=== PATIENT | male | born 1955 | race Caucasian/White ===

== ENCOUNTER 2017-06-13 11:28 | Emergency (ER) | payer BC ==
[2017-06-13 11:53] VITALS: BP 169/98
--- NOTE | 2017-06-13 12:46 | EDM.PDOC ---
ED HPI GENERAL MEDICAL PROBLEM - General Chief Complaint: Abdominal Pain Stated Complaint: R SIDE ABDOMINAL PAIN Time Seen by Provider: 06/13/17 11:49 Source of Information: Reports: Patient History Limitations: Reports: No Limitations - History of Present Illness INITIAL COMMENTS - FREE TEXT/NARRATIVE: 62 y/o M with R upper abdominal pain. Has been occurring off and on daily for the past week. States the pain is mild - more of a discomfort that actual pain. Waxes and wanes. No clear provoking or relieving factors. Pain is absent now. No vomiting or nausea. No diarrhea. No hematuria/dysuria or other urinary problem. no cough/CP/SOB. Denies fever or recent illness. No injury to the area. No recent heavy lifting. No similar symptoms previously. Tried to have it evaluated by clinic PCP and by walk-in clinic but sent here for evaluation. Also mentions that his BP has been running higher than usual - 150-160's systolic. He is on lisinopril 5 mg daily. Compliant with meds. Treatments EVALUATOR TRANSFER STUDENTS: Reports: Other (see below) Other Treatments EVALUATOR TRANSFER STUDENTS: tylenol Right Abdomen Pain Score (Numeric/FACES): 4 - Related Data Allergies Allergy/AdvReac Type Severity Reaction Status Date / Time No Known Allergies Allergy Verified 05/24/16 17:10 Home Meds: Home Meds Lisinopril 10 mg PO DAILY #30 tablet 06/13/17 [Rx] Past Medical History Cardiovascular History: Reports: High Cholesterol, Hypertension Musculoskeletal History: Reports: Arthritis, RA, Other (See Below) Other Musculoskeletal History: left elbow adhesions removed - Infectious Disease History Infectious Disease History: Reports: Shingles - Past Surgical History HEENT Surgical History: Reports: Naso-Sinus Surgery Social & Family History - Family History Family Medical History: Noncontributory - Tobacco Use Smoking Status *Q: Former Smoker Used Tobacco, but Quit: Yes Month/Year Tobacco Last Used: 34 yrs Second Hand Smoke Exposure: No - Caffeine Use Caffeine Use: Reports: Coffee, Tea - Recreational Drug Use Recreational Drug Use: No - Living Situation & Occupation Living situation: Reports: with Significant Other Occupation: Employed ED ROS GENERAL - Review of Systems Review Of Systems: See Below Constitutional: Denies: Fever HEENT: Reports: No Symptoms Respiratory: Denies: Shortness of Breath, Cough Cardiovascular: Denies: Chest Pain Endocrine: Reports: No Symptoms GI/Abdominal: Reports: Abdominal Pain. Denies: Diarrhea : Denies: Dysuria, Flank Pain, Hematuria Musculoskeletal: Reports: No Symptoms Skin: Reports: No Symptoms Neurological: Reports: No Symptoms ED EXAM, GI/ABD - Physical Exam Exam: See Below Exam Limited By: No Limitations General Appearance: Alert, WD/WN, No Apparent Distress Eyes: Bilateral: Normal Appearance Ears: Normal External Exam Nose: Normal Inspection Throat/Mouth: Normal Inspection, Normal Voice, No Airway Compromise Head: Atraumatic, Normocephalic Neck: Normal Inspection, Supple Respiratory/Chest: No Respiratory Distress, Lungs Clear, Normal Breath Sounds Cardiovascular: Normal Peripheral Pulses, Regular Rate, Rhythm, No Edema, No Murmur GI/Abdominal Exam: Soft, Non-Tender, No Distention Back Exam: Normal Inspection. No: CVA Tenderness (L), CVA Tenderness (R) Extremities: Normal Inspection Neurological: Alert, Oriented, Normal Cognition, No Motor/Sensory Deficits Psychiatric: Normal Affect, Normal Mood Skin Exam: Warm, Dry, Intact, Normal Color Course - Vital Signs Last Recorded V/S: Last Vital Signs Temp 36.3 C 06/13/17 11:49 Pulse 87 06/13/17 11:49 Resp 20 06/13/17 11:49 BP 169/98 H 06/13/17 11:49 Pulse Ox 96 06/13/17 11:49 - Orders/Labs/Meds Orders: Active Orders 24 hr Category Date Time Status Abdomen Ltd [US] Stat Exams 06/13/17 12:11 Taken Labs: Laboratory Tests 06/13/17 06/13/17 Range/Units 12:20 12:20 WBC 5.51 (4.23-9.07) K/mm3 RBC 5.09 (4.63-6.08) M/mm3 Hgb 16.4 (13.7-17.5) gm/L Hct 48.3 (40.1-51.0) % MCV 94.9 H (79.0-92.2) fl MCH 32.2 (25.7-32.2) pg MCHC 34.0 (32.2-35.5) g/dl RDW Std Deviation 44.2 H (35.1-43.9) fL Plt Count 186 (163-337) K/mm3 MPV 10.5 (9.4-12.3) fl Neut % (Auto) 63.6 (34.0-67.9) % Lymph % (Auto) 19.4 L (21.8-53.1) % Jefferson % (Auto) 15.2 H (5.3-12.2) % Eos % (Auto) 0.9 (0.8-7.0) Baso % (Auto) 0.7 (0.1-1.2) % Neut # (Auto) 3.50 (1.78-5.38) K/mm3 Lymph # (Auto) 1.07 L (1.32-3.57) K/mm3 Jefferson # (Auto) 0.84 H (0.30-0.82) K/mm3 Eos # (Auto) 0.05 (0.04-0.54) K/mm3 Baso # (Auto) 0.04 (0.01-0.08) K/mm3 Manual Slide Review Normal smear Sodium 138 (136-145) mEq/L Potassium 3.6 (3.5-5.1) mEq/L Chloride 103 (98-107) mEq/L Carbon Dioxide 24 (21-32) mEq/L Anion Gap 14.6 (5-15) BUN 13 (7-18) mg/dL Creatinine 0.8 (0.7-1.3) mg/dL Est Cr Clr Drug Dosing 96.32 mL/min Estimated GFR (MDRD) > 60 (>60) mL/min BUN/Creatinine Ratio 16.3 (14-18) Glucose 93 (80-115) mg/dL Calcium 9.4 (8.5-10.1) mg/dL Total Bilirubin 0.6 (0.2-1.0) mg/dL AST 43 H (15-37) U/L ALT 86 H (16-63) U/L Alkaline Phosphatase 24 L (46-116) U/L Total Protein 7.5 (6.4-8.2) g/dl Albumin 4.4 (3.4-5.0) g/dl Globulin 3.1 gm/dL Albumin/Globulin Ratio 1.4 (1-2) Lipase 279 (73-393) U/L - Re-Assessments/Exams Free Text/Narrative Re-Assessment/Exam: 06/13/17 12:45 Advised patient to increase lisinopril to 10mg daily. Meanwhile, will eval RUQ pain with labs and u/s. 06/13/17 14:08 Labs normal. U/S shows cholelithiasis, no evidence of cholecystitis. No abd pain at this time. Counselled pt. re: diet, need for f/u, and return precautions. Departure - Departure Time of Disposition: 14:09 Disposition: Home, Self-Care 01 Clinical Impression: Cholelithiasis Qualifiers: Cholelithiasis location: gallbladder Cholecystitis presence: without cholecystitis Biliary obstruction: without biliary obstruction Qualified Code(s) : K80.20 - Calculus of gallbladder without cholecystitis without obstruction - Discharge Information Prescriptions: Lisinopril 10 mg PO DAILY #30 tablet Instructions: Cholelithiasis, [id number] Referrals: Coleman Cuellar MD [Primary Care Provider] - Forms: ED Department Discharge Additional Instructions: 1. Increase lisinopril from 5mg to 10 mg daily. 2. Your blood work was normal. Ultrasound showed gallstones, which may be what is causing your abdominal discomfort. If episodes of pain continue, follow up with the general surgeon of your choice. Call [phone] if you'd like to schedule with a surgeon here. 3. Avoiding fatty foods may help you aviod painful episodes 4. Return to the ED if you have worsening abdominal pain, vomiting, fever, or any other concerning symptoms. - My Orders Last 24 Hours: My Active Orders 06/13/17 12:11 [employer] [[place]] Stat - Assessment/Plan Last 24 Hours: My Active Orders 06/13/17 12:11 [employer] [[place]] Stat
--- NOTE | 2017-06-14 16:52 | US ---
Limited abdominal ultrasound: Multiple real-time images of the upper right abdomen were obtained. Comparison: No prior abdominal imaging. Technologist's note: Suboptimal images due to bowel gas and dense liver Liver is echogenic compatible with fatty infiltration. Multiple gallstones are seen. No gallbladder wall thickening or biliary duct dilatation is seen. Right kidney shows no hydronephrosis or mass. Right kidney has a length of 13.5 cm. Pancreas is poorly seen. Inferior vena cava is patent. Portal vein shows normal hepatopedal flow. Impression: 1. Cholelithiasis without gallbladder wall thickening or biliary duct dilatation. 2. Fatty infiltration within the liver. Diagnostic code #3 Agree with preliminary report issued by [employer] ([facility] preliminary report dictated on 06/13/17, 3:04 PM Central Time)
== END 2017-06-13 14:30 | disposition home or self-care (01) ==
LOC: JD.ED 11:28
DX: K80.20 Calculus of gallbladder without cholecystitis without obstruction (principal); E78.00 Pure hypercholesterolemia, unspecified; I10 Essential (primary) hypertension; M19.90 Unspecified osteoarthritis, unspecified site; Z79.899 Other long term (current) drug therapy; Z87.891 Personal history of nicotine dependence
CPT/HCPCS: 36415; 76705; 76705-26; 80053; 83690; 85025; 99283; 99284-25

== ENCOUNTER → 2017-07-15 | Day surgery (SDC) | payer BC ==
[~2017-07-15] MED LIST: Acetaminophen/Codeine 300-30 MG Tab PO PRN; Bupivacaine 0.25%/EPINEPHrine 1:200,000 30 ML SDV ONE; HYDROmorphone 0.5 MG/0.5 ML Syringe ONE; Ketorolac 30 MG/ML SDV IVPUSH PRN; Labetalol 100 MG/20 ML MDV ONE; Lactated Ringers 1,000 ML IV SCH; Lactated Ringers 1,000 ML ONE; Lidocaine 1% 4 ML ONE; Lidocaine 1% with EPINEPHrine 1:100,000 20 ML MDV ONE; Lidocaine 1%/Sod Bicarbonate in NS 8.4% 1 ML Syringe IDERM PRN; Midazolam 1 MG/ML 2 ML SDV ONE; Ondansetron 4 MG/2 ML SDV ONE; Propofol 200 MG/20 ML SDV ONE; Rocuronium 50 MG/5 ML Vial ONE; Sodium Chloride 0.9% 10 ML Syringe FLUSH PRN; ceFAZolin 1 GM Vial ONE; ePHEDrine 50 MG/ML SDV ONE; fentaNYL 100 MCG/2 ML SDV IVPUSH PRN; fentaNYL 250 MCG/5 ML SDV ONE
--- NOTE | 2017-07-15 07:41 | PCM.PREANE ---
Preanesthetic Assessment - Anesthesia/Transfusion/Family Hx Anesthesia History: Prior Anesthesia Without Reaction Family History of Anesthesia Reaction: No Transfusion History: No Prior Transfusion(s) - Review of Systems General: No Symptoms Pulmonary: No Symptoms Cardiovascular: No Symptoms Gastrointestinal: Abdominal Pain Neurological: No Symptoms Other: Reports: None - Physical Assessment NPO Status Date: 07/14/17 NPO Status Time: 00:00 Pulse: 96 O2 Sat by Pulse Oximetry: 94 Respiratory Rate: 18 Blood Pressure: 144/98 Temperature: 36.4 C Height: 1.78 m Weight: 99.065 kg ASA Class: 2 Mental Status: Alert & Oriented x3 Dentition: Reports: Dentures (upper), Missing Tooth/Teeth, Caries Thyro-Mental Finger Breadths: 2 Mouth Opening Finger Breadths: 3 ROM/Head Extension: Full Lungs: Clear to Auscultation, Normal Respiratory Effort Cardiovascular: Regular Rate, Regular Rhythm, No Murmurs - Lab Values: on chart - Imaging/EKG Impressions: EKG SR borderline prolong QT - Allergies Allergies/Adverse Reactions: Allergies Allergy/AdvReac Type Severity Reaction Status Date / Time No Known Allergies Allergy Verified 07/14/17 14:54 - Blood Blood Available: No Product(s) Available: None - Anesthesia Plan Pre-Op Medication Ordered: None - Acknowledgements Anesthesia Type Planned: General Anesthesia Pt an Appropriate Candidate for the Planned Anesthesia: Yes Alternatives and Risks of Anesthesia Discussed w Pt/Guardian: Yes Pt/Guardian Understands and Agrees with Anesthesia Plan: Yes PreAnesthesia Questionnaire HEENT History: Reports: Impaired Vision, Other (See Below) Other HEENT History: bacterial conjunctivits, wears glasses, has upper denture Cardiovascular History: Reports: High Cholesterol, Hypertension Respiratory History: Reports: None Gastrointestinal History: Reports: Other (See Below) Other Gastrointestinal History: RUQ pain Genitourinary History: Reports: None SAFETY TEACHER History: Reports: None Musculoskeletal History: Reports: Arthritis, RA, Other (See Below) Other Musculoskeletal History: left elbow adhesions removed Neurological History: Reports: None Psychiatric History: Reports: None Endocrine/Metabolic History: Reports: None Hematologic History: Reports: Bleeding Disorder Immunologic History: Reports: None Oncologic (Cancer) History: Reports: None Dermatologic History: Reports: Other (See Below) Other Dermatologic History: herpes zoster - Infectious Disease History Infectious Disease History: Reports: Shingles - Past Surgical History Head Surgeries/Procedures: Reports: None HEENT Surgical History: Reports: Naso-Sinus Surgery Cardiovascular Surgical History: Reports: None Respiratory Surgical History: Reports: None GI Surgical History: Reports: Colonoscopy Female Surgical History: Reports: None Male Surgical History: Reports: None Neurological Surgical History: Reports: None Oncologic Surgical History: Reports: None - SUBSTANCE USE Smoking Status *Q: Former Smoker Tobacco Use Within Last Twelve Months: No Second Hand Smoke Exposure: No Days Per Week of Alcohol Use: 7 Number of Drinks Per Day: 4 Total Drinks Per Week: 28 Recreational Drug Use History: No - HOME MEDS Home Medications: Home Meds Calcium Citrate [Calcitrate (190 MG Calcium)] 950 mg PO DAILY 07/14/17 [History] Cholecalciferol (Vitamin D3) [Vitamin D3] 1,000 unit PO DAILY 07/14/17 [History] Diclofenac Sodium [Voltaren] 1 dose TOP ASDIRECTED PRN 07/14/17 [History] Fenofibrate Nanocrystallized [Fenofibrate] 48 mg PO DAILY 07/14/17 [History] Fluticasone Propionate [Flonase] 1 spray NASBOTH DAILY 07/14/17 [History] Hydroxychloroquine Sulfate [Plaquenil] 200 mg PO BID 07/14/17 [History] Lisinopril 5 mg PO DAILY 07/14/17 [History] Methotrexate Sodium [Methotrexate] 8 tab PO MO 07/14/17 [History] Multivitamin [Poly-Vitamin] 1 tab PO DAILY 07/14/17 [History] Sildenafil [Viagra] 50 mg PO ASDIRECTED PRN 07/14/17 [History] Simvastatin 40 mg PO DAILY 07/14/17 [History] Tofacitinib Citrate [Xeljanz] 5 mg PO DAILY 07/14/17 [History] Vitamin B Complex 1 tab PO DAILY 07/14/17 [History] predniSONE [Prednisone] 10 mg PO SUWEFR 07/14/17 [History] - CURRENT (IN HOUSE) MEDS Current Meds: Current Medications Lactated Ringer's (Ringers, Lactated) 1,000 mls @ 125 mls/hr IV ASDIRECTED SABA Stop: 07/15/17 23:00 Lidocaine/Sodium Bicarbonate (Buffered Lidocaine 1% In Ns 8.4%) 0.25 ml IDERM ONETIME PRN PRN Reason: Prior to IV Start Stop: 07/15/17 18:00 Sodium Chloride (Saline Flush) 10 ml FLUSH ASDIRECTED PRN PRN Reason: Keep Vein Open Stop: 07/15/17 18:00 Discontinued Medications Bupivacaine HCl/Epinephrine Bitart (Marcaine 0.25%/Epinephrine 1:200,000) Confirm Administered Dose 30 ml .ROUTE .STK-MED ONE Stop: 07/15/17 07:21 Cefazolin Sodium (Ancef) Confirm Administered Dose 2 gm .ROUTE .STK-MED ONE Stop: 07/15/17 07:25 Fentanyl (Sublimaze) Confirm Administered Dose 250 mcg .ROUTE .STK-MED ONE Stop: 07/15/17 07:25 Lidocaine HCl (Xylocaine-Mpf 1%) Confirm Administered Dose 4 mls @ as directed .ROUTE .STK-MED ONE Stop: 07/15/17 07:25 Lidocaine/Epinephrine (Xylocaine 1% With Epinephrine 1:100,000) Confirm Administered Dose 20 ml .ROUTE .STK-MED ONE Stop: 07/15/17 07:21 Midazolam HCl (Versed 1 Mg/Ml) Confirm Administered Dose 2 mg .ROUTE .STK-MED ONE Stop: 07/15/17 07:25 Ondansetron HCl (Zofran) Confirm Administered Dose 4 mg .ROUTE .STK-MED ONE Stop: 07/15/17 07:24 Propofol (Diprivan 20 Ml) Confirm Administered Dose 200 mg .ROUTE .STK-MED ONE Stop: 07/15/17 07:24 Rocuronium Valier (Zemuron) Confirm Administered Dose 50 mg .ROUTE .STK-MED ONE Stop: 07/15/17 07:24
--- NOTE | 2017-07-15 09:09 | PCM.OPNOTE ---
- General Post-Op/Procedure Note Date of Surgery/Procedure: 07/15/17 Operative Procedure(s): Laparoscopic cholecystectomy Findings: Adhesions between the small bowel of the right lower quadrant. The gallbladder had chronic inflammation and green pigmented stones. Pre Op Diagnosis: Chronic cholecystitis associated with biliary colic and cholelithiasis Post-Op Diagnosis: Same Anesthesia Technique: General ET Tube, Local Primary Surgeon: Andres Johnson Pathology: Gallbladder with contents EBL in mLs: 3 Complications: None Condition: Good Free Text/Narrative:: After adequate general endotracheal tube anesthesia was obtained the patient's abdomen was prepped and draped in the usual fashion for a laparoscopic cholecystectomy. After local analgesia was given a supraumbilical incision was made with 15 blade down to the midline which was opened with a 15 blade. A 12 mm camera port was inserted through this site. CO2 pneumoperitoneum was obtained. 3 -- 5 mm working ports were placed along the right costal margin. Exploration revealed the findings above. I grasped the dome of the gallbladder and retracted it and the liver in a cephalad direction. I then grasped Luo' s pouch then dissected the pericholecystic fat away from the cystic duct and cystic artery which were identified clipped in continuity and divided with scissors. I then took the gallbladder down in a retrograde fashion with the hook cautery and removed it through the umbilicus in a specimen bag. There was some spillage of bile from the gallbladder and I irrigated out the gallbladder bed with 500 mL of saline. There was no bile duct injury or obvious bowel injury. I decannulated the abdominal wall under direct vision with no bleeding from the port sites seen. CO2 pneumoperitoneum was released. I closed the umbilical site with one [id number] 0 Vicryl. The subcutaneous tissues and skin were closed with Vicryl as well. Steri-Strips and gauze were used for the dressing. [employer] Attorney photographs were taken for the patient and for the medical record.
--- NOTE | 2017-07-15 09:20 | PCM.POSTAN ---
POST ANESTHESIA ASSESSMENT - MENTAL STATUS Mental Status: Alert, Oriented - VITAL SIGNS Pulse Rate: 87 SaO2: 93 Resp Rate: 11 Blood Pressure: 147/85 Temperature: 36.1 C - RESPIRATORY Respiratory Status: Respiratory Rate WNL, Airway Patent, O2 Saturation Stable, Supplemental Oxygen - CARDIOVASCULAR CV Status: Pulse Rate WNL, Blood Pressure Stable - GASTROINTESTINAL GI Status: No Symptoms - PAIN Pain Score: 0 - POST OP HYDRATION Hydration Status: Adequate & Stable - OBSERVATIONS Free Text/Narrative:: no anesthesia complications noted
[2017-07-15 11:47] VITALS: BP 138/90
== END | disposition home or self-care (01) ==
LOC: JD.SDS 06:49
PROVIDERS: ATTEND Surgery
DX: K80.10 Calculus of gallbladder with chronic cholecystitis without obstruction (principal); I10 Essential (primary) hypertension; Z79.899 Other long term (current) drug therapy; F17.200 Nicotine dependence, unspecified, uncomplicated
CPT/HCPCS: 47562; A9270; J0690; J1170; J1885; J2250; J2405; J3010; J7120; J2704

== ENCOUNTER 2023-12-14 08:01 | Day surgery (SDC) | payer MEDICARE ==
[~2023-12-14 08:01] MED LIST changes: -Acetaminophen/Codeine 300-30 MG Tab PO PRN; -Bupivacaine 0.25%/EPINEPHrine 1:200,000 30 ML SDV ONE; -HYDROmorphone 0.5 MG/0.5 ML Syringe ONE; -Ketorolac 30 MG/ML SDV IVPUSH PRN; -Labetalol 100 MG/20 ML MDV ONE; -Lactated Ringers 1,000 ML IV SCH; -Lactated Ringers 1,000 ML ONE; -Lidocaine 1% 4 ML ONE; -Lidocaine 1% with EPINEPHrine 1:100,000 20 ML MDV ONE; -Lidocaine 1%/Sod Bicarbonate in NS 8.4% 1 ML Syringe IDERM PRN; -Midazolam 1 MG/ML 2 ML SDV ONE; -Ondansetron 4 MG/2 ML SDV ONE; -Propofol 200 MG/20 ML SDV ONE; -Rocuronium 50 MG/5 ML Vial ONE; +Sodium Chloride 0.9% 10 ML Syringe FLUSH SCH; -ceFAZolin 1 GM Vial ONE; -ePHEDrine 50 MG/ML SDV ONE; -fentaNYL 100 MCG/2 ML SDV IVPUSH PRN; -fentaNYL 250 MCG/5 ML SDV ONE
[2023-12-14] MEDS ORDERED: Lactated Ringers 1,000 ML ONE (08:13)
[2023-12-14] MEDS ORDERED: ceFAZolin 2 GM Vial ONE ×2 (08:13→08:14)
[2023-12-14] MEDS ORDERED: Midazolam 1 MG/ML 2 ML SDV ONE (08:14)
[2023-12-14] MEDS ORDERED: Propofol 200 MG/20 ML SDV ONE ×5 (08:14→09:59)
[2023-12-14] MEDS: Lactated Ringers 1,000 ML IV SCH (08:30)
[2023-12-14] MEDS: Hydrocortisone Sodium Succinate 100 MG/2 ML SDV IVPUSH ONE (08:49)
[2023-12-14] MEDS ORDERED: Ondansetron 4 MG/2 ML SDV ONE (09:15)
[2023-12-14] MEDS ORDERED: Ketorolac 30 MG/ML SDV ONE (09:15)
[2023-12-14] MEDS ORDERED: HYDROmorphone 0.5 MG/0.5 ML Syringe IVPUSH PRN (09:25)
[2023-12-14] MEDS ORDERED: fentaNYL 100 MCG/2 ML SDV IVPUSH PRN (09:25)
[2023-12-14] MEDS ORDERED: Ondansetron 4 MG/2 ML SDV IVPUSH PRN (09:25)
[2023-12-14] MEDS: Vancomycin 1 GM SDV ONE (10:13)
[2023-12-14] MEDS: Tranexamic Acid 1,000 MG/10 ML Vial ONE (10:13)
[2023-12-14] MEDS: Morphine 8 MG, EPINEPHrine 0.3 MG, Cefuroxime 750 MG, Ketorolac 30 MG, Sodium Chloride ... PRN (10:13)
[2023-12-14] MEDS: traMADol 50 MG Tab PO PRN (12:58)
== END 2023-12-14 15:35 | disposition home or self-care (01) ==
LOC: JD.SDS 08:01
PROVIDERS: ATTEND Orthopaedic Surgery
DX: M16.12 Unilateral primary osteoarthritis, left hip (principal); I10 Essential (primary) hypertension; J44.9 Chronic obstructive pulmonary disease, unspecified; E78.00 Pure hypercholesterolemia, unspecified; M06.9 Rheumatoid arthritis, unspecified; Z87.891 Personal history of nicotine dependence; Z79.899 Other long term (current) drug therapy
CPT/HCPCS: 0055T; 27130; 36415; 73501; 86850; 86900; 86901; 97110; 97161; A9270; C1713; C1776; J0171; J0690; J0697; J1720; J1885; J2250; J2270; J2405; J2704; J3370; J7120; 01214; J3490

== ENCOUNTER 2024-06-16 08:55 | Day surgery (SDC) | payer MEDICARE ==
[2024-06-16] MEDS: Cefuroxime 10 MG/ML SYRINGE EYELF SCH (08:27)
[2024-06-16] MEDS: Brimonidine 0.2% Ophth Soln 5 ML Bottle EYELF SCH (08:27)
[2024-06-16] MEDS: Phenylephrine 2.5% Ophth Soln 2 ML Bot EYELF SCH (08:27)
[2024-06-16] MEDS: Lidocaine 1% PF 2 ML SDV INJECT SCH (08:27)
[2024-06-16] MEDS: Tetracaine HCl/PF 0.5% 4 ML Bottle EYEBOTH SCH (08:27)
[2024-06-16] MEDS: Polymyxin B/Trimethoprim 10 ML Bottle EYELF SCH (08:28)
[2024-06-16] MEDS: Pilocarpine 4% Ophth Soln 15 ML Bot EYELF SCH (08:28)
[2024-06-16] MEDS: Tropicamide 1% Ophth Soln 3 ML Bottle EYELF SCH (09:34)
== END 2024-06-16 11:22 | disposition home or self-care (01) ==
LOC: JD.SDS 08:55
PROVIDERS: ATTEND Ophthalmology
DX: H25.813 Combined forms of age-related cataract, bilateral (principal); H40.013 Open angle with borderline findings, low risk, bilateral; H16.103 Unspecified superficial keratitis, bilateral; H16.223 Keratoconjunctivitis sicca, not specified as Sjogren's, bilateral; H43.812 Vitreous degeneration, left eye; H17.9 Unspecified corneal scar and opacity; I10 Essential (primary) hypertension; E78.2 Mixed hyperlipidemia; Z79.899 Other long term (current) drug therapy
CPT/HCPCS: 66984; A9270; J0697; J3490

== ENCOUNTER 2024-07-21 08:25 | Day surgery (SDC) | payer MEDICARE ==
[2024-07-21] MEDS: Phenylephrine 2.5% Ophth Soln 2 ML Bot EYERT SCH (08:52)
[2024-07-21] MEDS: Tetracaine HCl/PF 0.5% 4 ML Bottle EYEBOTH SCH (08:52)
[2024-07-21] MEDS: Lidocaine 1% PF 2 ML SDV INJECT SCH (08:52)
[2024-07-21] MEDS: Polymyxin B/Trimethoprim 10 ML Bottle EYERT SCH (08:53)
[2024-07-21] MEDS: Brimonidine 0.2% Ophth Soln 5 ML Bottle EYERT SCH (08:53)
[2024-07-21] MEDS: Cefuroxime 10 MG/ML SYRINGE EYERT SCH (08:53)
[2024-07-21] MEDS: Pilocarpine 4% Ophth Soln 15 ML Bot EYERT SCH (08:53)
[2024-07-21] MEDS: Tropicamide 1% Ophth Soln 3 ML Bottle EYERT SCH (09:27)
== END 2024-07-21 10:54 ==
LOC: JD.SDS 08:25
PROVIDERS: ATTEND Ophthalmology
DX: H26.9 Unspecified cataract (principal); I10 Essential (primary) hypertension; E78.00 Pure hypercholesterolemia, unspecified; Z79.899 Other long term (current) drug therapy
CPT/HCPCS: 66984; A9270; J0697; J3490; V2632